=== PATIENT | male | born 1985 | race African-American/Black ===

== ENCOUNTER 2017-03-06 22:19 | Emergency (ER) | payer SELFPAY ==
[~2017-03-06] VITALS: Ht 172.7 cm; Wt 68.0 kg
[2017-03-06] MEDS ORDERED: SODIUM CHLORIDE 0.9% 1,000 ML IV ONE (23:55)
[2017-03-07] MEDS ORDERED: LORAZEPAM 1MG TABLET PO ONE
[2017-03-07] MEDS ORDERED: MAGNESIUM/ALUMINUM HYDROXIDE/SIMETHICONE 30ML UDC PO ONE
[2017-03-07] MEDS ORDERED: FAMOTIDINE 20MG/2ML VIAL IV ONE
[2017-03-07 00:21] LABS: HEMATOCRIT. 37.4 % (42.0-52.0); HEMOGLOBIN. 12.5 g/dL (14.0-18.0); MEAN CORPUSCULAR HEMOGLOBIN 32.1 pg (28.0-32.0); MEAN CORPUSCULAR VOLUME 95.8 fL (80.0-94.0); MEAN PLATELET VOLUME 8.3 fl (7.4-10.4); PLATELET 259 x1000/uL (130-400); RED CELL DISTRIBUTION WIDTH 13.8 % (11.6-14.6)
[2017-03-07 00:30] LABS: INR 1.1; PROTHROMBIN TIME 11.4 sec (9.4-11.6)
[2017-03-07 00:36] LABS: CARBON DIOXIDE 31 mEq/L (21-32); CHLORIDE 104 mEq/L (98-107)
[2017-03-07 01:36] LABS: CLARITY URINE CLEAR (CLEAR); COLOR URINE YELLOW (YELLOW); KETONES URINE NEGATIVE (NEGATIVE); LEUKOCYTE ESTERASE URINE 2+ (NEGATIVE); NITRITE URINE NEGATIVE (NEGATIVE); OCCULT BLOOD URINE NEGATIVE (NEGATIVE); PH URINE 5.5 (4.5-8.0); PROTEIN URINE NEGATIVE (NEGATIVE); SPECIFIC GRAVITY URINE 1.014 (1.005-1.030); UROBILINOGEN URINE 0.2 E.U./dL (0.2-1.0)
[2017-03-07] MEDS ORDERED: CEFTRIAXONE SODIUM 250 MG/VIAL IM ONE (03:00)
[2017-03-07] MEDS: LIDOCAINE HCL 1% 20ML VIAL (Pyxis) INJ INFIL NR ×2 (03:23→03:39)
[2017-03-07 03:49] VITALS: BP 109/56
[2017-03-07 07:32] LABS: PLATELET ESTIMATE NORMAL
== END 2017-03-07 04:47 | disposition home or self-care (01) ==
LOC: ER 22:19
DX: F17.200 Nicotine dependence, unspecified, uncomplicated (principal)
CPT/HCPCS: 36415; 76705; 80053; 81001; 83690; 85025; 85610; 93005; 96361; 96372; 96374; 99285; J0696; J3490; J7030; Z7610